=== PATIENT | male | born 1980 | race African-American/Black ===

== ENCOUNTER 2020-07-07 00:30 | Emergency (ER) | payer MEDICAID, SELFPAY ==
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
[2020-07-07 00:30] VITALS: BP 117/78; PULSE 78; RESP 16; TEMP 36.5; O2SAT 96; BMI 26.6
[2020-07-07 01:09] VITALS: BP 123/70; PULSE 75; RESP 16; TEMP 36.9; O2SAT 100
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
[2020-07-07] MEDS: Oxymetazoline HCl 0.05 % Nasal 15 ML SPRAY 2 SPRAY NOSTRIL-B (01:24)
[2020-07-07] MEDS: Acetaminophen 325 MG TABLET 650 MG PO (02:25)
== END 2020-07-07 03:43 | disposition home or self-care (01) ==
PROVIDERS: Emergency Provider Emergency Medicine
DX: S02.2XXA Fracture of nasal bones, initial encounter for closed fracture (principal); R04.0 Epistaxis; Z79.899 Other long term (current) drug therapy; Y04.8XXA Assault by other bodily force, initial encounter; Y93.9 Activity, unspecified; Y92.9 Unspecified place or not applicable; Y99.9 Unspecified external cause status
CPT/HCPCS: 70150; 99284

== ENCOUNTER 2021-04-28 14:38 | Emergency (ER) | payer MEDICAID, SELFPAY ==
--- NOTE | ~2021-04-28 | XR_ITS ---
EXAMINATION: XR CHEST CLINICAL INFORMATION: Rib pain and back pain. COMPARISON: None TECHNIQUE: 2 views of the chest were obtained. FINDINGS: No significant abnormality is noted involving the heart, lungs, mediastinum, bony thorax or soft tissues. XR/XR chest 2V IMPRESSION: Unremarkable examination.
--- NOTE | ~2021-04-28 | CT_ITS ---
EXAMINATION: CT ANGIOGRAM CHEST CLINICAL INFORMATION: Chest pain. COMPARISON: None TECHNIQUE: Multiple axial images were obtained through the chest after the administration 70 mL of Omnipaque 350 intravenous contrast. Extensive vascular post-processing including two-dimensional and three-dimensional reformatted images were created and reviewed on an independent workstation. This CT examination was performed using dose optimization techniques as appropriate, variously including the following: *Automated exposure control *Adjustment of mA and/or kV according to patient size (this includes techniques or standardized protocols for targeted exams where dose is matched to indication/reason for exam; i.e. extremities or head) *Use of iterative reconstruction technique DLP: 296 mGy-cm FINDINGS: The pulmonary artery is well opacified without any intraluminal filling defect or narrowing. The thoracic aorta is of normal caliber without any aneurysm or dissection. There is normal three-vessel branching of thoracic arch. The central trachea and the bronchi appears widely patent. There is no mediastinal mass or lymphadenopathy. The thyroid lobes are symmetrical and normal. Both lungs are fairly well-expanded and clear of acute pneumonic process. The 3 mm nodular density right middle lobe axial image 31/6. There is no pleural effusion or thickening. The axilla and chest wall appears unremarkable. Bone windows reveal no lytic or sclerotic process. There is mild ventral spondylosis. Visualized liver is diffusely attenuated. No focal lesion seen. Visualized spleen, pancreas and bilateral adrenal glands are unremarkable. CT/CT angio chest aorta IMPRESSION: No evidence of PE. No evidence of aortic dissection or aneurysm. No acute consolidation. Punctate 3 mm nodule right middle lobe. Mild attenuation of liver. Fleischner guidelines were followed.
[2021-04-28 14:57] VITALS: BP 113/69; PULSE 53; RESP 18; TEMP 36.8; O2SAT 98; BMI 26.6
[2021-04-28 16:45] LABS: MANUAL DIFF FLAG NO
[2021-04-28 16:46] LABS: Basophils Absolute Auto 0.1 X10*3/uL (0.0-0.2); Basophils Percent Auto 0.4 % (0-2); Eosinophils Absolute Auto 0.1 X10*3/uL (0.0-0.4); Eosinophils Percent Auto 0.4 % (0-4); Hematocrit 46.6 % (42.0-52.0); Hemoglobin 16.2 g/dl (14.0-18.0); Imm Gran Abs Auto 0.05 X10*3/uL (0.00-0.03); Imm Gran Pct Auto 0.4 % (0.0-0.4); Lymphocytes Absolute Auto 2.5 X10*3/uL (1.2-4.9); Lymphocytes Percent Auto 18.4 % (20-40); Mean Corpuscular HGB Conc 34.8 g/dl (31.0-36.0); Mean Corpuscular Hemoglobin 29.2 pg (27.0-33.0); Mean Corpuscular Volume 84.1 fL (80.0-98.0); Mean Platelet Volume 10.4 fL (9.4-12.4); Monocytes Absolute Auto 0.7 X10*3/uL (0.1-1.2); Monocytes Percent Auto 5.1 % (2-11); Neutrophils Absolute Auto 10.1 x10*3/uL (2.0-8.3); Neutrophils Percent Auto 75.3 % (45-73); Platelet Count 258 X10*3/uL (160-400); Red Blood Count 5.54 X10*6/uL (4.60-5.80); Red Cell Distribution Width 13.2 % (11.0-16.0); White Blood Count 13.4 X10*3/uL (4.8-10.8)
[2021-04-28 16:58] LABS: Anion Gap 13 (12-20); Blood Urea Nitrogen 9 mg/dL (9-16); Calcium 10.1 mg/dL (8.4-10.2); Carbon Dioxide 27 mmol/L (22-29); Chloride 104 mmol/L (96-108); Creatinine Clr Calc Pharmacy 101.6; Estimated Glomerular Filt Rate > 60; Glucose Random 98 mg/dL (60-115); Potassium 4.6 mmol/L (3.3-5.1); Sodium 139 mmol/L (135-145)
[2021-04-28 17:18] LABS: COVID-19 Test Negative (Negative)
--- NOTE | 2021-04-28 19:06 | ED_ITS ---
HPI - Nausea/Vomiting/Diarrhea General Chief complaint: Nausea/Vomiting/Diarrhea Stated complaint: n/v Time Seen by Provider: 04/28/21 19:06 Source: patient Mode of arrival: ambulatory Limitations: no limitations History of Present Illness HPI Narrative: c/o about 1 week posterior R back pain that wraps around ribs hurts to touch and move denies trauma, then today he vomited MD elicited complaint: nausea and vomiting (just once today) Onset (ago): day(s) (7 (vomited x 1 just today)) Description of vomiting: food contents Associated nausea: Yes Associated abdominal pain: Yes Location of pain: epigastric and other (has had R posterior upper back pain wra pping around ribs) Severity: moderate Quality: aching and dull Exacerbating factors: movement Relieving factors: none Context: other (cannot think of event) Associated symptoms: loss of appetite and nausea/vomiting Treatment prior to arrival: NSAIDs Related Data Previous Rx's Medication Instructions Recorded acetaminophen 650 mg 650 mg PO Q8H PRN #10 tab 07/07/20 tablet,extended release cyclobenzaprine 10 mg tablet 10 mg PO TID PRN #14 tab 04/28/21 lidocaine 4 % topical patch 1 patch TOPICAL DAILY PRN #10 ea 04/28/21 ondansetron 4 mg disintegrating 4 mg PO Q8H PRN #20 tab 04/28/21 tablet Allergies Allergy/AdvReac Type Severity Reaction Status Date / Time No Known Allergies Allergy Unverified 07/07/20 00:37 Review of Systems Review of Systems: Constitutional : No Weight loss, No Fever, No Chills ENT/Mouth : No sore throat, No Rhinorrhea Eyes: No Swelling, No Redness Cardiovascular : No Chest Pain, No SOB, No Edema, pos chest wall pain Respiratory : No Cough, No Sputum, No Wheezing Gastrointestinal : Positive Nausea, Positive Vomiting, no Diarrhea, positive abdominal Pain, No Hematochezia, No Melena Genitourinary : No Dysuria, No Urinary Frequency, No Hematuria, No Urgency Musculoskeletal : No joint pain, No Myalgias, No Joint Swelling, pos back pain Skin : No Skin Lesions, No rash Neuro : No Weakness, No Numbness, No Dizziness, No Headache Psych : No Anxiety/Panic, No Depression Heme/Lymph: No Bruising, No Lymphadenopathy Endocrine : No Polyuria, No Polydipsia All other systems reviewed and are negative. Gastrointestinal: Gastrointestinal: Reports nausea PMFSH Past Medical History Attestation statement: The following information was validated with the patient. Medical History No known health problems Social History Social History (Updated 04/28/21 @ 19:29 by Moraima Nelson DO) Patient Tobacco Use Status: Never used Tobacco Substance Use Type: Marijuana Advance Directives: No Advance Directives Information Provided: No Physical Exam Vital Signs: Vital Signs: Last Vital Signs Temp 98.3 F 04/28/21 20:28 Pulse 52 04/28/21 20:28 Resp 16 04/28/21 20:28 BP 133/68 04/28/21 20:28 Pulse Ox 98 04/28/21 20:28 BMI result Body Mass Index 26.6 Appearance: Alert. Oriented X3. No acute distress. Eyes: Pupils equal, round and reactive to light. ENT: Pharynx normal. Neck: Normal inspection. Neck supple. CVS: Normal heart rate and rhythm. Pulses normal. Chest wall: ttp along bilateral lower latera/anterior ribs Respiratory: No respiratory distress. Breath sounds normal. Abdomen: Soft and non-tender. Back: ttp along R upper paraspinal area reproduces pain - spasm noted Skin: Skin warm and dry. Normal skin color. Normal skin turgor. Extremities: No lower extremity edema. No calf ttp Neuro: Oriented X 3. No motor deficit. No sensory deficit. Course Course Course Narrative: labs, CXR negative stable PERC negative but patient looks pale and still c/o back pain wrapping around front - will order dissection study CTA study negative stable for DC MDM - Nausea/Vomiting/Diarrhea MDM Narrative Medical decision making narrative: 40 yo male no sig PMH here with complaints of R posterior upper back pain that radiates around the ribs - denies known trauma no IVDA. He is distally NV intact. Also notes he has felt nauseated and vomited x 1 today. At this time will obtain labs, CXR, IVF and zofran/flexeril for symptoms. Could be MSK in nature. His abdominal exam there is no ttp. He has no risk factors for epidural abscess such as IVDA. Dispo per results and findings. Lab Data Result diagrams: 04/28/21 16:36 04/28/21 16:36 Labs: Lab Results 04/28/21 04/28/21 04/28/21 Range/Units 16:33 16:36 16:36 WBC 13.4 H (4.8-10.8) X10*3/uL RBC 5.54 (4.60-5.80) X10*6/uL Hgb 16.2 (14.0-18.0) g/dl Hct 46.6 (42.0-52.0) % MCV 84.1 (80.0-98.0) fL MCH 29.2 (27.0-33.0) pg MCHC 34.8 (31.0-36.0) g/dl RDW 13.2 (11.0-16.0) % Plt Count 258 (160-400) X10*3/uL MPV 10.4 (9.4-12.4) fL Immature Gran % (Auto) 0.4 (0.0-0.4) % Neut % (Auto) 75.3 H (45-73) % Lymph % (Auto) 18.4 L (20-40) % [place] % (Auto) 5.1 (2-11) % Eos % (Auto) 0.4 (0-4) % Baso % (Auto) 0.4 (0-2) % Lymph # (Auto) 2.5 (1.2-4.9) X10*3/uL [place] # (Auto) 0.7 (0.1-1.2) X10*3/uL Eos # (Auto) 0.1 (0.0-0.4) X10*3/uL Baso # (Auto) 0.1 (0.0-0.2) X10*3/uL Abs Immat Gran (auto) 0.05 H (0.00-0.03) X10*3/uL Absolute Neuts (auto) 10.1 H (2.0-8.3) x10*3/uL Absolute Nucleated RBC 0.000 (0.0-0.012) X10*3/uL Nucleated RBC % (auto) 0.0 (0.0-0.2) /100WBC Sodium 139 (135-145) mmol/L Potassium 4.6 (3.3-5.1) mmol/L Chloride 104 (96-108) mmol/L Carbon Dioxide 27 (22-29) mmol/L Anion Gap 13 (12-20) BUN 9 (9-16) mg/dL Creatinine 0.84 (0.5-1.4) mg/dL Estim Creat Clear Calc 101.6 Estimated GFR > 60 Random Glucose 98 (60-115) mg/dL Calcium 10.1 (8.4-10.2) mg/dL Total Bilirubin 0.6 (0.0-1.0) mg/dL Direct Bilirubin 0.3 (0.0-0.5) mg/dL AST 15 (5-37) U/L ALT 19 (0-40) U/L Alkaline Phosphatase 68 (39-117) U/L Troponin I High Sens (<3.5-35.0) ng/L Total Protein 7.2 (6.5-8.0) g/dL Albumin 4.5 (3.5-5.0) g/dL Lipase 32 (8-78) U/L COVID-19 (JOSE) Negative (Negative) COVID-19 Clin Com See Note 04/28/21 Range/Units 16:36 WBC (4.8-10.8) X10*3/uL RBC (4.60-5.80) X10*6/uL Hgb (14.0-18.0) g/dl Hct (42.0-52.0) % MCV (80.0-98.0) fL MCH (27.0-33.0) pg MCHC (31.0-36.0) g/dl RDW (11.0-16.0) % Plt Count (160-400) X10*3/uL MPV (9.4-12.4) fL Immature Gran % (Auto) (0.0-0.4) % Neut % (Auto) (45-73) % Lymph % (Auto) (20-40) % [place] % (Auto) (2-11) % Eos % (Auto) (0-4) % Baso % (Auto) (0-2) % Lymph # (Auto) (1.2-4.9) X10*3/uL [place] # (Auto) (0.1-1.2) X10*3/uL Eos # (Auto) (0.0-0.4) X10*3/uL Baso # (Auto) (0.0-0.2) X10*3/uL Abs Immat Gran (auto) (0.00-0.03) X10*3/uL Absolute Neuts (auto) (2.0-8.3) x10*3/uL Absolute Nucleated RBC (0.0-0.012) X10*3/uL Nucleated RBC % (auto) (0.0-0.2) /100WBC Sodium (135-145) mmol/L Potassium (3.3-5.1) mmol/L Chloride (96-108) mmol/L Carbon Dioxide (22-29) mmol/L Anion Gap (12-20) BUN (9-16) mg/dL Creatinine (0.5-1.4) mg/dL Estim Creat Clear Calc Estimated GFR Random Glucose (60-115) mg/dL Calcium (8.4-10.2) mg/dL Total Bilirubin (0.0-1.0) mg/dL Direct Bilirubin (0.0-0.5) mg/dL AST (5-37) U/L ALT (0-40) U/L Alkaline Phosphatase (39-117) U/L Troponin I High Sens < 3.5 (<3.5-35.0) ng/L Total Protein (6.5-8.0) g/dL Albumin (3.5-5.0) g/dL Lipase (8-78) U/L COVID-19 (JOSE) (Negative) COVID-19 Clin Com ECG Data Attestation: I personally reviewed and interpreted this ECG as follows: ECG interpretation date: 04/28/21 ECG interpretation time: 20:27 Interpretation: Rate: 51 Rhythm: sinus bradycardia Hayes: normal Normal P waves. Normal FAMILIA. Normal QRS complex. ST T wave : normal no TONG qTC: normal prior studies: no acute ischemia The study has been interpreted contemporaneously by me. Discharge Plan Discharge Clinical Impression: Nausea & vomiting, Back pain Patient Disposition: Home, Self-Care Instructions: Acute Nausea and Vomiting (ED), Back Pain (ED) Additional Instructions: return to ED for any worsening symptoms or concerns No evidence of PE. ? No evidence of aortic dissection or aneurysm. ? No acute consolidation. Punctate 3 mm nodule right middle lobe. - CAN FOLLOW UP WITH PCP AND REPEAT IMAGING IN 6 TO 12 MONTHS ? Mild attenuation of liver.? ? Fleischner guidelines were followed. Prescriptions: New cyclobenzaprine 10 mg tablet 10 mg PO TID PRN (Reason: muscle spasm) Qty: 14 0RF lidocaine 4 % adhesive patch,medicated 1 patch topical DAILY PRN (Reason: pain) Qty: 10 0RF Rx Instructions: may leave on for up to 12 hrs ondansetron 4 mg tablet,disintegrating 4 mg PO Q8H PRN (Reason: nausea and vomiting) Qty: 20 0RF No Action acetaminophen 650 mg tablet extended release 650 mg PO Q8H PRN (Reason: pain) Qty: 10 0RF Referrals: [facility] [Primary Care Provider] - 3 days Stand Alone Forms: Work/School Release
--- NOTE | 2021-04-28 19:27 | ECG_ITS ---
Test Reason : cp Blood Pressure : / mmHG Vent. Rate : 051 BPM Atrial Rate : 051 BPM P-R Int : 164 ms QRS Dur : 088 ms QT Int : 414 ms P-R-T Axes : 061 016 -03 degrees QTc Int : 381 ms Sinus bradycardia Septal infarct , age undetermined - could be related to body habitus and lead placement Abnormal ECG No previous ECGs available Referred By: Moraima Nelson Electronically Signed By:DYLLAN BRINK
[2021-04-28] MEDS: Cyclobenzaprine HCl 10 MG TABLET PO (19:30)
[2021-04-28] MEDS: 0.9 % Sodium Chloride 1,000 ML 999 ML IV (19:30)
[2021-04-28] MEDS: Lidocaine 4 % Patch ADH..PATCH 1 PATCH TRANSDERMA (19:30)
[2021-04-28] MEDS: ondansetron HCL 4 MG/2 ML VIAL IVPUSH (19:30)
[2021-04-28 19:37] LABS: Alanine Aminotransferase 19 U/L (0-40); Albumin Level 4.5 g/dL (3.5-5.0); Alkaline Phosphatase 68 U/L (39-117); Aspartate Amino Transferase 15 U/L (5-37); Bilirubin Direct 0.3 mg/dL (0.0-0.5); Bilirubin Total 0.6 mg/dL (0.0-1.0); Lipase 32 U/L (8-78); Total Protein 7.2 g/dL (6.5-8.0)
[2021-04-28 19:46] LABS: Troponin-I High Sensitivity < 3.5 ng/L (<3.5-35.0)
[2021-04-28 20:28] VITALS: BP 133/68; PULSE 52; RESP 16; TEMP 36.8; O2SAT 98
[2021-04-28] MEDS: iohexoL 350 MG/ML 100 ML INFUS..BTL IV (21:13)
== END 2021-04-28 22:21 | disposition home or self-care (01) ==
PROVIDERS: Emergency Provider Emergency Medicine
DX: R11.2 Nausea with vomiting, unspecified (principal); M54.6 Pain in thoracic spine; Z20.822 Contact with and (suspected) exposure to COVID-19; F12.90 Cannabis use, unspecified, uncomplicated
CPT/HCPCS: 71046; 71275; 80048; 80076; 83690; 84484; 85025; 87635; 93005; 96361; 96374; 99284; J2405; Q9967